=== PATIENT | female | born 1945 | race Caucasian/White ===

== ENCOUNTER → 2017-10-14 11:35 | Outpatient (CLI) | payer BC, SELFPAY ==
--- NOTE | 2017-10-14 | DI.RAD.S_ITS ---
PROCEDURE: XR CHEST 2V INDICATIONS: PNEUMONIA TECHNIQUE: 2 views of the chest were acquired. COMPARISON: [facility], , CHEST 2 VIEW, 02/20/2016, 14:41. FINDINGS: Surgical changes and devices: None. Lungs and pleura: No pleural effusions or pneumothorax. Right midlung plate like atelectasis otherwise the lungs are clear. Mediastinum: Mediastinal contours are normal. Heart size is normal. Bones and chest wall: No suspicious bony abnormalities. Soft tissues appear unremarkable. IMPRESSION: No radiographic evidence of acute cardiopulmonary pathology. Dictated by: Tushar Engle M.D. on 10/14/2017 at 11:46 Approved by: Tushar Engle M.D. on 10/14/2017 at 11:47
== END ==
PROVIDERS: PCP Internal Medicine; Visit Provider Internal Medicine
DX: J18.9 Pneumonia, unspecified organism (principal)
CPT/HCPCS: 71046

== ENCOUNTER → 2018-07-09 10:42 | Outpatient (CLI) | payer BC, SELFPAY ==
--- NOTE | 2018-07-09 | DI.CT.S_ITS ---
PROCEDURE: CT ABDOMEN PELVIS W CON INDICATIONS: Unspecified abdominal pain TECHNIQUE: After the administration of oral and intravenous contrast, 5 mm thick sections acquired from the diaphragms to the symphysis. 5 mm thick coronal and sagittal reformats were performed. For radiation dose reduction, the following was used: automated exposure control, adjustment of mA and/or kV according to patient size. COMPARISON: [facility], CT, ABDOMEN/PELVIS WITH CONTRAST, 02/02/2013, 14:17. FINDINGS: Image quality: Excellent. ABDOMEN: Lung bases: Lung bases are clear. Heart size is normal. Solid organs: Liver is normal in size and enhancement. Gallbladder is surgically absent. Extrahepatic common duct dilatation up to about 1.9 cm, but tapering normally to the ampulla. Mild left intrahepatic biliary dilatation. Pancreas enhances normally. Spleen is normal in size and enhancement. No adrenal nodules. Kidneys are normal in size and enhancement, without hydronephrosis. Peritoneum and bowel: Stomach, and small bowel loops are normal in caliber and wall thickness. There is moderate descending diverticulosis and fairly extensive sigmoid diverticulosis without pericolonic inflammation. No free fluid or free air. Nodes and vessels: No retroperitoneal or mesenteric adenopathy. Aorta and inferior vena cava are normal in caliber. Miscellaneous: No ventral hernias. PELVIS: Genitourinary: Bladder wall thickness is normal given decompression. Surgically absent uterus. Miscellaneous: No inguinal hernias or adenopathy. Bones: No suspicious bony lesions. No vertebral body compression fractures. Laminectomy with hardware and osseous fusion of L4 and L5. IMPRESSION: 1. Cholecystectomy with extrahepatic biliary dilatation above expected normal for postcholecystectomy state. Trace amount of intrahepatic biliary dilatation involving the left lobe. Correlate with LFTs. 2. Descending and sigmoid colon diverticulosis without acute diverticulitis. 3. Remote postsurgical changes in the L4-5 region. Dictated by: Sheyla Barr M.D. on 07/09/2018 at 15:16 Approved by: Sheyla Barr M.D. on 07/09/2018 at 15:27
== END ==
PROVIDERS: PCP Student in an Organized Health Care Education/Training Program; Visit Provider Student in an Organized Health Care Education/Training Program
DX: R10.9 Unspecified abdominal pain (principal); K83.8 Other specified diseases of biliary tract; K57.30 Diverticulosis of large intestine without perforation or abscess without bleeding; Z90.49 Acquired absence of other specified parts of digestive tract; Z98.1 Arthrodesis status
CPT/HCPCS: 74177; Q9967

== ENCOUNTER → 2019-12-13 12:37 | Outpatient (CLI) | payer SELFPAY | PROVIDERS: PCP Student in an Organized Health Care Education/Training Program; Referring Provider Student in an Organized Health Care Education/Training Program; Visit Provider Student in an Organized Health Care Education/Training Program | DX: M06.9 Rheumatoid arthritis, unspecified (principal); R29.890 Loss of height; N95.8 Other specified menopausal and perimenopausal disorders | CPT/HCPCS: 77080 ==